=== PATIENT | male | born 1950 ===

== ENCOUNTER 2017-07-31 18:49 | Emergency (ER) | payer BC ==
--- NOTE | 2017-07-31 19:24 | C.PDOC ---
History Of Present Illness Patient presents to ED with complaints of fever and diarrhea worsening since Monday. Patient reports taking antibiotics for his prostate and has took OTC medication with no relief. Patient states he has been taking "lots of fluid cold medication". Patient denies abdominal pain, urinary symptoms, back pain, vomiting or any other complaints at this time. Time Seen by Provider: 07/31/17 19:23 Chief Complaint (Nursing): Fever History Per: Patient History/Exam Limitations: no limitations Onset/Duration Of Symptoms: Days Current Symptoms Are (Timing): Still Present Location Of Pain: None Associated Symptoms: Fever, Diarrhea. denies: Vomiting Ear Symptoms: Bilateral: None Severity: Mild Pain Scale Rating Of: 2 Recent travel outside of the [place]: No Additional History Per: Patient Past Medical History Reviewed: Historical Data, Nursing Documentation, Vital Signs Vital Signs: Last Vital Signs Temp 98.0 F 07/31/17 20:23 Pulse 82 07/31/17 20:23 Resp 18 07/31/17 20:23 BP 154/77 H 07/31/17 20:23 Pulse Ox 96 07/31/17 20:23 Surgical History: Appendectomy Family History: States: No Known Family Hx - Social History Hx Alcohol Use: No Hx Substance Use: No - Immunization History Hx Tetanus Toxoid Vaccination: No Hx Influenza Vaccination: No Hx Pneumococcal Vaccination: No Review Of Systems Constitutional: Positive for: Fever Eyes: Negative for: Redness ENT: Negative for: Throat Pain Cardiovascular: Negative for: Chest Pain Respiratory: Negative for: Shortness of Breath Gastrointestinal: Positive for: Diarrhea. Negative for: Vomiting, Abdominal Pain Genitourinary: Negative for: Dysuria, Hematuria Musculoskeletal: Negative for: Back Pain Skin: Negative for: Rash Neurological: Negative for: Weakness Psych: Negative for: Anxiety Physical Exam - Physical Exam Appears: Non-toxic, No Acute Distress Skin: Warm, Dry Head: Normacephalic Eye(s): left: Other (Cross eyed) Oral Mucosa: Moist Throat: No Erythema, No Exudate Neck: Supple Chest: Symmetrical Cardiovascular: Rhythm Regular Respiratory: No Rales, No Rhonchi, No Wheezing Gastrointestinal/Abdominal: Soft, No Tenderness, No Distention, No Guarding, No Rebound Back: No CVA Tenderness Extremity: Normal ROM Extremity: Bilateral: Atraumatic Pulses: Left Dorsalis Pedis: Normal, Right Dorsalis Pedis: Normal Neurological/Psych: Oriented x3, Normal Speech, Normal Cognition, No Romberg Gait: Steady ED Course And Treatment - Laboratory Results Result Diagrams: 07/31/17 20:00 07/31/17 20:00 O2 Sat by Pulse Oximetry: 96 (RA) Pulse Ox Interpretation: Normal Reevaluation Time: 21:08 Reassessment Condition: Improved Disposition Counseled Patient/Family Regarding: Studies Performed, Diagnosis, Need For Followup - Disposition Referrals: [facility] [Outside] [facility] [Outside] Disposition: HOME/ ROUTINE Disposition Time: 19:24 Condition: FAIR Instructions: Fever in Adults (ED), Acute Diarrhea (ED) Forms: [employer] (Chinese) - Clinical Impression Clinical Impression: Fever, Diarrhea - Scribe Statement The provider has reviewed the documentation as recorded by the Scribannita Omer All medical record entries made by the Juiceibannita were at my direction and personally dictated by me. I have reviewed the chart and agree that the record accurately reflects my personal performance of the history, physical exam, medical decision making, and the department course for this patient. I have also personally directed, reviewed, and agree with the discharge instructions and disposition.
[2017-07-31] MEDS ORDERED: Sodium Chloride 0.9% 1,000 ML IV ONE (19:28)
[2017-07-31] MEDS ORDERED: Sodium Chloride 0.9% 1,000 ML ONE (19:45)
[2017-07-31 20:06] LABS: VENOUS BLOOD GAS BASE EXCESS 0.7 mmol/L (0.0-2.0); VENOUS BLOOD GAS PCO2 40 mmHg (40-60); VENOUS BLOOD PH 7.41 (7.32-7.43)
[2017-07-31 20:07] LABS: BASO % 0.1 % (0.0-2.0); EOS % 0.1 % (0.0-4.0); HEMATOCRIT 41.3 % (35.0-51.0); LYMPH # 0.6 K/uL (1.0-4.3); LYMPH % 6.2 % (20.0-40.0); MEAN CELL VOLUME 87.7 fL (80.0-94.0); MEAN CORPUSCULAR HGB CONC 34.2 g/dL (33.0-37.0); MEAN PLATELET VOLUME 8.3 fL (7.2-11.7); MONO # 0.5 K/uL (0.0-0.8); MONO % 5.5 % (0.0-10.0); PLATELET COUNT 194 K/uL (130-400); RED CELL DISTRIBUTION WIDTH 13.7 % (11.5-14.5); WHITE BLOOD COUNT 9.6 K/uL (4.8-10.8)
[2017-07-31 20:17] LABS: CHLORIDE 97 mmol/L (98-107)
[2017-07-31 20:18] LABS: POTASSIUM 3.6 mmol/L (3.6-5.2); SODIUM 132 mmol/L (132-148)
[2017-07-31 20:20] LABS: ALB/GLOB RATIO 1.1 (1.0-2.1); ALKALINE PHOSPHATASE 108 U/L (38-126); AST/SGOT 40 U/L (17-59); BILIRUBIN,TOTAL 0.7 mg/dL (0.2-1.3); CARBON DIOXIDE 22 mmol/L (22-30); GFR AFRICAN-AMERICAN > 60
[2017-07-31 20:21] LABS: ALT/SGPT 37 U/L (21-72); BLOOD UREA NITROGEN 25 mg/dL (9-20); CALCIUM 8.7 mg/dl (8.6-10.4); GLUCOSE,RANDOM 117 mg/dL (75-110)
[2017-07-31 20:24] VITALS: RESP 18
[2017-07-31 21:36] LABS: NEUTROPHIL 89 % (50-75); TOTAL CELLS COUNTED 100
--- NOTE | 2017-07-31 22:45 | US ---
EXAM: US Scrotum CLINICAL HISTORY: 66 years old, male; Pain; Scrotum pain; Additional info: Right testicular pain TECHNIQUE: Real-time ultrasound of the scrotum with color Doppler and image documentation. COMPARISON: No relevant prior studies available. FINDINGS: Right testicle: No mass. No torsion. Left testicle: Probable 0.3 x 0.3 x 0.4 cm LEFT testicular cyst. No torsion. Epididymides: Mildly heterogeneous, hypervascular RIGHT epididymis. Two small LEFT epididymal cysts. Scrotum: Small RIGHT hydrocele. RIGHT varicocele. IMPRESSION: 1. Findings concerning for RIGHT epididymitis. Clinical correlation is needed. 2. Incidental/non-acute findings are described above.
[2017-07-31 23:03] LABS: RBC URINE 15 /hpf (0-3); URINE BACTERIA FEW (<OCC); URINE BILIRUBIN NEGATIVE (NEGATIVE); URINE BLOOD 2+ (NEGATIVE); URINE COLOR Yellow (YELLOW); URINE GLUCOSE (UA) NORMAL (Normal); URINE KETONE NEGATIVE (NEGATIVE); URINE LEUKOCYTE ESTERASE 3+ Leu/uL (Negative); URINE PROTEIN 1+ mg/dL (NEGATIVE); URINE UROBILINOGEN NORMAL mg/dL (0.2-1.0); WBC URINE 157 /hpf (0-5)
[2017-07-31 23:16] VITALS: BP 148/72; PULSE 80; TEMP 98.2; O2SAT 99
== END 2017-07-31 23:16 | disposition home or self-care (01) ==
LOC: C.ER 18:49
DX: R50.9 Fever, unspecified (principal); R19.7 Diarrhea, unspecified; N45.1 Epididymitis
CPT/HCPCS: 76870; 80053; 81001; 82803; 85025; 87040; 96360; 99285; J7040